=== PATIENT | male | born 1960 | race Two or more races ===

== ENCOUNTER 2018-01-12 11:34 | Emergency (ER) | payer OTHER ==
--- NOTE | 2018-01-12 12:54 | EDPHY ---
H & P Time Seen by Provider: 01/12/18 12:53 HPI/ROS: Chief complaint. Elevated blood pressure HPI. Patient is a 57-year-old male with concern for high blood pressure near syncopal episode today. The patient had previously been on medication for hypertension but stop med secondary to side effects. Subsequent monitoring of his blood pressure has shown it to be adequate without medication. The patient and his and has had upper respiratory symptoms with cough for about 1 week. He saw his PCP a year and was wheezing he was started on steroids. Today he was coughing and coughed in his low back is started to hurt the low back pain went to the buttocks and posterior thigh but it has now gone away. He was somewhat dizzy today and felt like he could pass out. However no chest pain or shortness of breath. No abdominal pain. No leg weakness or bowel or bladder symptoms. ROS 10 systems were reviewed and negative with the exception of the elements mentioned in the history of present illness Past Medical/Surgical History: Previous hypertension Social History: , nonsmoker, no alcohol Smoking Status: Never smoked Physical Exam: General Appearance: Alert well-developed male mild distress vital signs show slightly elevated blood pressures at 153/96, 169/93, 153/92 Eyes: Pupils equal and round no pallor or injection. ENT, Mouth: Mucous membranes are moist. Respiratory: No retractions. Mild inspiratory expiratory rhonchi. No wheezing Cardiovascular: Regular rate and rhythm. Gastrointestinal: Abdomen is soft and nontender, no masses, bowel sounds normal. Neurological: Awake and alert, sensory and motor exams grossly normal. Skin: Warm and dry, no rashes. Musculoskeletal: Neck is supple nontender. Extremities symmetrical, full range of motion. Psychiatric: Patient is oriented X 3, there is no agitation. Constitutional: Initial Vital Signs Temperature (C) 36.7 C 01/12/18 11:35 Heart Rate 80 01/12/18 11:35 Respiratory Rate 16 01/12/18 11:35 Blood Pressure 153/96 H 01/12/18 11:35 O2 Sat (%) 93 01/12/18 11:35 O2 Delivery Mode Room Air Allergies/Adverse Reactions: No Known Allergies Allergy (Verified 07/10/12 03:43) Home Medications: Medication Instructions Recorded Miscellaneous Medical Supply [NO 1 ea MISC AD 07/10/12 HOME MEDS] Medical Decision Making - Diagnostics EKG Interpretation: EKG interpreted by me shows normal sinus rhythm normal interval and axis. There is an abnormal Q-waves inferiorly in lead 3. QRS is otherwise normal. There is no significant ST elevation or depression. There is no arrhythmia. The rate is 65 No previous EKG for comparison Imaging Results: Imaging Impressions Chest X-Ray 01/12/18 13:12 Impression: Mild bronchitis. Otherwise normal. Chest x-ray interpreted by me shows mild bronchitis but no pneumonia Procedures: IV normal saline, monitor ED Course/Re-evaluation: Re-evaluation at 3:05 p.m.. Patient has no symptoms. He feels well. Patient and I discussed imaging lab results. We discussed treatment plan including criteria for return importance of follow-up and further evaluation. He expresses understanding and agreement Differential Diagnosis: Patient has bronchitis. I considered pneumonia. I considered acute coronary syndrome as he had a near syncopal episode. His symptoms of of near syncope and dizziness began after taking cough medicine with codeine. He has no symptoms now. - Data Points Laboratory Results: Laboratory Results 01/12/18 13:45 01/12/18 13:45 01/12/18 01/12/18 01/12/18 13:54 13:45 13:45 WBC 13.41 10^3/uL H 10^3/uL (3.80-9.50) RBC 5.84 10^6/uL 10^6/uL (4.40-6.38) Hgb 17.3 g/dL g/dL (13.7-17.5) Hct 50.1 % % (40.0-51.0) MCV 85.8 fL fL (81.5-99.8) MCH 29.6 pg pg (27.9-34.1) MCHC 34.5 g/dL g/dL (32.4-36.7) RDW 12.1 % % (11.5-15.2) Plt Count 171 10^3/uL 10^3/uL (150-400) MPV 12.4 fL H fL (8.7-11.7) Neut % (Auto) 74.6 % H % (39.3-74.2) Lymph % (Auto) 17.8 % % (15.0-45.0) Sherman % (Auto) 4.9 % % (4.5-13.0) Eos % (Auto) 0.1 % L % (0.6-7.6) Baso % (Auto) 0.4 % % (0.3-1.7) Nucleat RBC Rel Count 0.0 % % (0.0-0.2) Absolute Neuts (auto) 10.01 10^3/uL H 10^3/uL (1.70-6.50) Absolute Lymphs (auto) 2.39 10^3/uL 10^3/uL (1.00-3.00) Absolute Monos (auto) 0.66 10^3/uL 10^3/uL (0.30-0.80) Absolute Eos (auto) 0.01 10^3/uL L 10^3/uL (0.03-0.40) Absolute Basos (auto) 0.05 10^3/uL 10^3/uL (0.02-0.10) Absolute Nucleated RBC 0.00 10^3/uL 10^3/uL (0-0.01) Immature Gran % 2.2 % H % (0.0-1.1) Immature Gran # 0.29 10^3/uL H 10^3/uL (0.00-0.10) Sodium 138 mEq/L mEq/L (135-145) Potassium 4.2 mEq/L mEq/L (3.3-5.0) Chloride 101 mEq/L mEq/L (97-110) Carbon Dioxide 25 mEq/l mEq/l (22-31) Anion Gap 12 mEq/L mEq/L (8-16) BUN 18 mg/dL mg/dL (7-23) Creatinine 1.1 mg/dL mg/dL (0.7-1.3) Estimated GFR > 60 Glucose 122 mg/dL H mg/dL (70-100) Calcium 9.7 mg/dL mg/dL (8.5-10.4) POC Troponin I 0.00 ng/mL ng/mL (0.00-0.08) Medications Given: Discontinued Medications Sodium Chloride (Ns) 1,000 mls @ 0 mls/hr IV EDNOW ONE; Wide Open PRN Reason: Protocol Stop: 01/12/18 13:13 Last Admin: 01/12/18 13:49 Dose: 1,000 mls Point of Care Test Results: Chemistry 01/12/18 13:54 POC Troponin I 0.00 ng/mL ng/mL (0.00-0.08) Departure - Departure Disposition: Home, Routine, Self-Care Clinical Impression: Bronchitis Condition: Good Instructions: Acute Bronchitis (ED) Additional Instructions: Continue regular medications. Recheck blood pressure after done with medication Return for chest discomfort, trouble breathing or another episode of near passing out Recheck in 2-3 days for blood pressure evaluation Referrals: FRANC RAYMUNDO [Other] - 2-3 days without fail
[2018-01-12] MEDS ORDERED: NS 1,000 ML IV ONE (13:12)
[2018-01-12 14:04] LABS: PLATELET COUNT 171 10^3/uL (150-400)
--- NOTE | 2018-01-12 15:02 | CPEKG ---
Test Reason : OPEN Blood Pressure : / mmHG Vent. Rate : 065 BPM Atrial Rate : 064 BPM P-R Int : 147 ms QRS Dur : 086 ms QT Int : 424 ms P-R-T Axes : 014 016 024 degrees QTc Int : 441 ms Sinus rhythm Abnormal R-wave progression, early transition Abnormal inferior Q waves Confirmed by Maximus Joshua ([id number]) on 01/12/2018 3:02:28 PM Referred By: Confirmed By:Maximus Joshua
[2018-01-12 15:43] VITALS: BP 143/85
== END 2018-01-12 15:42 | disposition home or self-care (01) ==
DX: J40 Bronchitis, not specified as acute or chronic (principal); E86.9 Volume depletion, unspecified; I10 Essential (primary) hypertension
CPT/HCPCS: 84484-PO